=== PATIENT | female | born 1945 | race Two or more races ===

== ENCOUNTER 2024-12-17 06:58 | Emergency (ER) | payer OTHER ==
[~2024-12-17] VITALS: Ht 160 cm; Wt 49.0 kg
[2024-12-17 07:18] VITALS: O2SAT 95
[2024-12-17] MEDS ORDERED: CARVEDILOL ER40 MG (07:22)
[2024-12-17] MEDS ORDERED: COZAAR50 MG PO (07:22)
[2024-12-17 09:16] LABS: BASO % 0.3 % (0.1-1.2); EOS # 0.02 (0.04-0.54); EOS % 0.2 % (0.7-7.0); LYMPH # 0.29 (1.18-3.74); LYMPH % 2.2 % (19.3-53.1); MEAN PLATELET VOLUME 9.80 fl (9.4-12.4); MONO # 1.11 (0.24-0.82); MONO % 8.3 % (4.7-12.5); NEUT # 11.80 (1.56-6.13); NEUT % 88.6 % (34.0-71.1); RED CELL DISTRIBUTION WIDTH 15.3 % (11.6-14.4)
[2024-12-17 09:41] LABS: BUN CREA RATIO 26.0 (7.0-25.0); CREATININE SERUM 0.72 mg/dL (0.55-1.02); GFR 78.14; GLUCOSE FASTING 89.0 mg/dL (65-100); OSMOLALITY SERUM 290.0 MOSM/KG (275-295)
[2024-12-17 09:59] LABS: COVID-19 AG NEGATIVE (NEGATIVE)
[2024-12-17 11:57] VITALS: BP 102/56
== END 2024-12-17 12:52 | disposition home or self-care (01) ==
LOC: ER 06:58
PROVIDERS: Emergency Medicine
DX: I10 Essential (primary) hypertension (principal); Z20.822 Contact with and (suspected) exposure to COVID-19; Z88.6 Allergy status to analgesic agent; Z91.011 Allergy to milk products